=== PATIENT | female | born 1950 | race Caucasian/White ===

== ENCOUNTER → 2021-01-16 10:28 | Outpatient (CLI) | payer MEDICARE, OTHER, SELFPAY ==
--- NOTE | 2021-01-16 | DI.RAD.S_ITS ---
PROCEDURE: FL JOINT INJECTION LARGE RT INDICATIONS: Unilateral primary osteoarthritis, right hip COMPARISON: None. TECHNIQUE: The indications, alternatives, benefits, risks, and complications of the procedure were explained to the patient. Written informed consent was obtained and placed in the chart. The patient was placed in an appropriate position on the fluoroscopy table, and a site was chosen for percutaneous access under fluoroscopic guidance. The site was prepped and draped in a sterile fashion. Local anesthetic was administered using a 1% lidocaine solution. A hypodermic or spinal needle was then used to access the symptomatic joint. Intra-articular location of the needle tip was confirmed by injecting a small amount of contrast, followed by steroid administration. The needle was then withdrawn, and a bandage applied to the puncture site. FINDINGS: Joint injected: Right hip Medications injected: 1 mL of 40 mg/mL Kenalog and 3 cc 0.5% Ropivacaine mixture. Patient's pain before injection: 8-9 out of 10. Patient's pain after injection: 6 out of 10. Complications: None. IMPRESSION: Successful fluoroscopically guided administration of steroid and anaesthetic solution into the right hip joint. Dictated by: Jim Agosto M.D. on 01/17/2021 at 13:50 Approved by: Jim Agosto M.D. on 01/17/2021 at 13:51
== END ==
PROVIDERS: PCP Internal Medicine; Referring Provider Orthopaedic Surgery; Visit Provider Orthopaedic Surgery
DX: M16.11 Unilateral primary osteoarthritis, right hip (principal)
CPT/HCPCS: 20610; 77002

== ENCOUNTER → 2021-02-24 10:59 | Outpatient (CLI) | payer MEDICARE, OTHER, SELFPAY ==
--- NOTE | 2021-02-24 | DI.RAD.S_ITS ---
PROCEDURE: FL JOINT INJECTION LARGE LT INDICATIONS: Unilateral primary osteoarthritis, left hip COMPARISON: [facility], [place], [place] JOINT INJECTION LARGE RT, 01/16/2021, 11:58. TECHNIQUE: The indications, alternatives, benefits, risks, and complications of the procedure were explained to the patient. Written informed consent was obtained and placed in the chart. The patient was placed in an appropriate position on the fluoroscopy table, and a site was chosen for percutaneous access under fluoroscopic guidance. The site was prepped and draped in a sterile fashion. Local anesthetic was administered using a 1% lidocaine solution. A hypodermic or spinal needle was then used to access the symptomatic joint. Intra-articular location of the needle tip was confirmed by injecting a small amount of contrast, followed by steroid administration. The needle was then withdrawn, and a bandage applied to the puncture site. FINDINGS: Joint injected: Left hip Medications injected: 6 mL of 40 mg/mL Kenalog and 0.5% Ropivacaine mixture. Patient's pain before injection: 6 out of 10. Patient's pain after injection: Patient denied giving a number but said it was less than preprocedural pain level. Complications: None. IMPRESSION: Successful fluoroscopically guided administration of steroid and anaesthetic solution into the left hip joint. Dictated by: George Brown M.D. on 02/24/2021 at 12:24 Approved by: George Brown M.D. on 02/24/2021 at 12:26
== END ==
PROVIDERS: PCP Internal Medicine; Referring Provider Orthopaedic Surgery; Visit Provider Orthopaedic Surgery
DX: M16.12 Unilateral primary osteoarthritis, left hip (principal)
CPT/HCPCS: 20610; 77002

== ENCOUNTER 2023-06-25 08:35 | Day surgery (SDC) | payer MEDICARE, OTHER, SELFPAY ==
[2023-06-12 13:38] VITALS: BMI 44.8
[2023-06-25] VITALS (12 sets, daily range): BP systolic 105–148; BP diastolic 40–67; PULSE 74–91; RESP 12–22; TEMP 36–37.6; O2SAT 92–99; BMI 44.8
[2023-06-25] MEDS: LACTATED RINGERS 1,000 ML 42 ML IV ×2 (09:19→13:37)
[2023-06-25] MEDS: ACETAMINOPHEN 325 MG TABLET 975 MG PO (09:19)
[2023-06-25] MEDS: PREGABALIN 75 MG CAPSULE PO (09:23)
[2023-06-25] MEDS: FAMOTIDINE 20 MG/2 ML VIAL IV (09:23)
[2023-06-25] MEDS: VANCOMYCIN 1,000 MG/200 ML PIGGYBACK 200 MG IV (10:08)
[2023-06-25] MEDS: CLINDAMYCIN 900 MG/50 ML PIGGYBACK 50 MG IV ×2 (11:30→20:05)
[2023-06-25] MEDS: TRANEXAMIC ACID 1,000 MG VIAL 1000 MG INJ ×2 (11:59→14:35)
--- NOTE | 2023-06-25 12:00 | DI.RAD.S_ITS ---
PROCEDURE: XR PELVIS 1-2V INDICATIONS: INNER OP TECHNIQUE: Intra-operative view of the pelvis and hip acquired. COMPARISON: [facility], [place], XR PELVIS WITH LATERAL HIP RIGHT, 06/05/2023, 11:48. [facility], [place], XR HIP W PEL IF DONE RT 2V, 06/25/2023, 15:26. FINDINGS: Bones: Intraoperative devices prior to placement of arthroplasty prostheses are in expected positions. No fractures or suspicious bony lesions. Spine hardware. Soft tissues: Overlying surgical retractors are present, along with other intraoperative changes. IMPRESSION: Right hip arthroplasty projects in the expected location. Dictated by: Rogerio Harvey M.D. on 06/25/2023 at 18:03 Approved by: Rogerio Harvey M.D. on 06/25/2023 at 18:21
--- NOTE | 2023-06-25 12:14 | SUR.OPER ---
Lateral on padded OR bed. Gel axillary roll. Arms secured on padded armboard with pillow supporting top arm. Padded hip positioner braces x4 - anterior and posterior chest and pelvis. Additional gel pad used anterior pelvis. Gel pad under bottom leg from knee to foot and secured with tape over sheet.
[2023-06-25] MEDS: BUPIVACAINE 0.25% (PF) 60 ML, EPINEPHrine 0.3 MG INJ (12:22)
[2023-06-25] MEDS: BUPIVACAINE LIPOSOME 266 MG/20 ML VIAL INJ (12:23)
--- NOTE | 2023-06-25 15:00 | DI.RAD.S_ITS ---
PROCEDURE: XR HIP W PEL IF DONE RT 2V INDICATIONS: POST OP RIGHT HIP TECHNIQUE: AP pelvis and lateral view of the hip acquired. COMPARISON: None. FINDINGS: Bones: Patient is status post right hip arthroplasty, with hardware components in expected positions. The hip joint appears congruent. The visualized bony structures appear intact. Soft tissues: Overlying postoperative changes are noted. No suspicious soft tissue densities. IMPRESSION: Expected post-operative appearance of a hip arthroplasty. Dictated by: Betsy Warner MD, PhD on 06/25/2023 at 15:49 Approved by: Betsy Warner MD, PhD on 06/25/2023 at 15:49
--- NOTE | 2023-06-25 15:35 | SUR.PHASEI ---
[facility]G 188 Spoke with Shamar ELLIOTT. No new orders at this time. Notified Dr Carrion. Pt to restart Ozempic and diabetic diet. No new orders at this time.
--- NOTE | 2023-06-25 15:39 | P.OP_ITS ---
Operative Date/Time/Diagnoses Date of procedure: 06/25/23 Time of procedure: 11:00 Pre-op diagnosis: Severe right hip OA Post-op diagnosis: same Procedure & Clinicians Procedure: Right total hip arthroplasty posterior approach Same procedure as scheduled: Yes Indications: The patient has had progressively worsening right hip pain with radiographic changes consistent with arthritis. Non-operative management has failed and the patient has requested total hip replacement. The risks, benefits and alternatives to surgery were discussed with the patient prior to proceeding. Risks discussed included, but were not limited to, failure to relieve pain, leg length discrepancy, dislocation, stiffness, infection, nerve damage, deep venous thrombosis, pulmonary embolism, stroke, coma, heart attack, permanent paralysis and , as well as the potential need for eventual revision of the prosthetic. Surgeon: Gricel Carrion Grounds Restoration Specialist: Rodriguez Harmon Anesthesia Type: General and Spinal Operative Notes Findings: Extremely tight hip, severe right hip osteoarthritis, adequate bone, adequate stability, Closure Type: primary Specimen(s): none sent Prosthetic devices, grafts, tissues, transplants, or devices: [employer] Synergy size 12, size 50 R3 cup, 36 x 50 20 degree acetabular liner optimize liner, 36 x -3 femoral head, one 6.5 mm screw Estimated Blood Loss (mL): 350 Blood products transfused: none Procedure in detail: The patient was seen in the pre-operative area, where the patient identified the right hip as the operative site and this was marked with my initials. The patient received pre-operative antibiotics and was taken to the operating room and placed on the operative table in the left lateral decubitus position after satisfactory anesthesia. A part time receptionist out was performed. The right leg was prepared from the ankle to the iliac crest with ChloroPrep in the usual fashion and draped through sterile drapes. PA was used during the procedure was essential for intraoperative retraction and safe implantation of the components. The patient was noted to have morbid obesity which made the procedure more difficult than normal and required extra time and specific extra retraction in order to adequately place the components. The hip was approached through an approximately 24 cm incision centered over the greater trochanter and curving gently posteriorly as it went proximally. This was carried sharply to the fascia suha, which was divided and retracted with a self retaining retractor. The trochanteric bursa was excised with care being taken to avoid the sciatic nerve, which was identified and protected throughout the case. The short external rotators were incised and the capsulomuscular flap was raised and tagged for later repair. The hip was dislocated, and a femoral neck osteotomy performed approximately 15 mm above the lesser trochanter. Retractors were placed around the femur. The canal was opened with a box cutting osteotome, followed by a T handled reamer and a lateralizing reamer. The chili pepper broach was then used, followed by sequential broaching until there was good stability of the broach in the femur. A Synergy was selected based on the patient's bone and anatomy. Retractors were placed to expose the acetabulum. The labrum and central soft tissues were removed. Reaming was performed initially going up in 2 mm increments, then 1 mm increments until good bite was obtained with an odd sized reamer. It was very difficult to mobilize the femur in order to allow safe implantation of the cup and femoral component. The cup 1 mm larger than the last reamer was then inserted using the appropriate anteversion guides. It was further stabilized with 2 screws. A trial neutral liner was placed. The broach was placed in the canal. A trial head and neck were then placed and the hip relocated and checked for leg length and stability. An intraoperative film confirmed the component position and no evidence of fracture. The patient was stable in the position of sleep, of squatting, and could be put through a range of motion with 45 degrees internal rotation without dislocation. At 90 degrees flexion, internal rotation to 70? was possible before dislocation. This was felt to be satisfactory. It was felt that based on her very large size and morbid obesity she was fundamentally at increased risk for instability. I opted to go with a 36 mm optimize liner with a lip placed on the posterior inferior aspect in order to slightly improved stability. It looked like we could probably go up 1-2 sizes on the stem and the stem was prepped for a size 12 stem. The appropriate components were opened, and the trials were removed. The acetabular liner was impacted into position. The final stem was then impacted into the prepared femoral canal. A brief Betadine soak was performed while trialing with head options. The hip was meticulously irrigated with normal saline. Finally the femoral head was impacted onto the stem. The acetabulum was cleared of all material and the hip relocated one final time. The capsulomuscular flap was then repaired to the greater trochanter though an awl hole using the tag sutures. The short external rotators were repaired with a nonabsorbable suture. The fascia suha was closed with Vicryl. The subcutaneous layer was closed with barbed sutures and skin apple. A priscilla Dressing was applied and the patient was taken to recovery having tolerated the procedure well. Complications: none Post-operative Condition: stable Disposition: observation Plan for aftercare: The patient will be maintained on a standard total hip replacement protocol with weight bearing as tolerated and posterior hip precautions. The patient will receive Aspirin and sequential compression devices for DVT prophylaxis. The patient will be discharged home when safe for the home environment.
[2023-06-25] MEDS: KETOROLAC 30 MG/ML VIAL 15 MG IV (15:51)
--- NOTE | 2023-06-25 16:07 | SUR.PHASEI ---
Pt transferred to room 210 by Eloy ARMAS in bed with 1 hospital bag and 2 personal bags.
[2023-06-25] MEDS: LACTATED RINGERS 1,000 ML 100 ML IV (16:34)
[2023-06-25] MEDS: HYDROCODONE/ACET 5/325 TABLET 2 TAB PO (17:01)
[2023-06-25] MEDS: ASPIRIN EC 81 MG TABLET PO (20:12)
[2023-06-25] MEDS: DULOXETINE 30 MG CAPSULE 60 MG PO (20:12)
[2023-06-25] MEDS: PREGABALIN 75 MG CAPSULE 150 MG PO (20:12)
[2023-06-25] MEDS: DOCUSATE 100 MG CAPSULE PO (20:12)
[2023-06-25] MEDS: ACETAMINOPHEN 325 MG TABLET 650 MG PO (22:05)
[2023-06-25] MEDS: VANCOMYCIN 1,500 MG/300 ML PIGGYBACK 200 MG IV (22:06)
--- NOTE | 2023-06-25 23:50 | PC.NURSE ---
Patient is alert and oriented. Breath sounds CTA with RA sat of 93%. HRR w/soft BP of 105/64 but is asymptomatic. Denied nausea. BT hypoactive and has not passed flatus since surgery. Had not voided since prior to surgery either, so gotten [place] [facility] [place] 2 assist + walker and was able to urinated 450cc; denied any dysuria and now has external catheter back on per her request. Is able to move herself in bed. MEREDITH dressing to right hip is intact and without drainage; functioning. Noted to have bruising on medial and anterior aspect of right thigh. Chronic neuropathy in bilateral feet otherwise CMS is intact and is able to lift right leg off bed. Wearing bilateral calf SCD's. Stated pain has not gotten worse than 4/10 and has been tolerated with use of scheduled pain meds. Fall risk score is moderate but bed alarm is activated.
[2023-06-26 00:36] VITALS: BP 103/47; PULSE 93; RESP 16; TEMP 36.1; O2SAT 92
[2023-06-26] MEDS: CLINDAMYCIN 900 MG/50 ML PIGGYBACK 50 MG IV (04:00)
[2023-06-26] MEDS: ACETAMINOPHEN 325 MG TABLET 650 MG PO ×2 (04:01→10:42)
[2023-06-26 04:53] LABS: Hematocrit 27.8 % (36-46); Hemoglobin 9.1 g/dL (12.0-16.0)
[2023-06-26 04:54] VITALS: BP 102/55; PULSE 88; RESP 19; TEMP 36.2; O2SAT 94
[2023-06-26 08:12] VITALS: BP 110/62; PULSE 86; O2SAT 97
--- NOTE | 2023-06-26 08:40 | PT.IIE ---
Current Diagnoses Bilateral primary osteoarthritis of hip (06/25/23) Surgery Performed Operation Date: 06/25/23 10:45 Actual Procedures p Total Hip Arthroplasty(Right) - Gricel Carrion MD Surgical History (Last Updated 06/12/23 @ 14:33 by Rosemarie Marcus RN) H/O right wrist surgery History of carpal tunnel surgery of left wrist History of carpal tunnel surgery of right wrist History of hysterectomy History of lumbar spinal fusion (~2009) History of surgery History of total left knee replacement Hx of abdominal surgery (~2020) Hx of appendectomy (~1965) Hx of bilateral cataract extraction Hx of cholecystectomy Hx of gastric bypass (~1974) Hx of tonsillectomy S/P Botox injection (~02/2023) Medical History (Last Updated 06/12/23 @ 14:45 by Rosemarie Marcus RN) Dry eyes Fibromyalgia History of COVID-19 (~2022) HTN (hypertension) Neuropathy Pre-diabetes UTI (urinary tract infection) (~06/06/23) Physical Therapy Inpatient Evaluation/Re-Eval M1 PT/OT-IP Prior Functional Status Start: 06/26/23 12:37 Freq: NEEDED Status: Active Protocol: Document 06/26/23 08:40 AB (Rec: 06/26/23 12:52 AB [id number]) Medical Review Prior Functional Status Medical History Reviewed Yes Communication able to make needs known Mobility and Gait pt stated that she was modified independent with all mobilities and ambulation without AD indoors with occasional use of SPC depending on hip pain but uses SPC for outdoor mobility Activities of Daily Living and IADL's Pt states had pain during all ADL and IADL needs. Social History Household Members spouse Living Arrangements Mobile home Number of Floors (Floors) One Floor Number of Stairs To Enter/Railing? 4 steps with bilateral rails. Home Environment Standard Height Toilet,Walk in Shower Home Equipment Front Wheel Walker,Straight Cane,Hand Held Shower,Evaluation Specialist Additional Social History Comment pt has a R bed rail pt sleeps on a reclinver M2 PT-IP Current Condition Start: 06/26/23 12:37 Freq: NEEDED Status: Active Protocol: Document 06/26/23 08:40 AB (Rec: 06/26/23 12:52 AB [id number]) Physical Therapy Current Condition Current Condition Evaluation Date 06/26/23 Treatment Diagnosis s/p R KEV posterior; difficulty in walking Onset Date 06/25/23 M3 PT-IP Subjective Start: 06/26/23 12:37 Freq: NEEDED Status: Active Protocol: Document 06/26/23 08:40 AB (Rec: 06/26/23 12:52 AB [id number]) Subjective Physical Therapy Visit Type Type Initial Evaluation Visit Start Time 08:40 Visit Stop Time 10:00 Number of DIRECTOR OF OPERATIONS HOME HEALTH Visits 0 Physical Therapy Visit Comments Patient Comments agreeable to do PT Therapy Pain Assessment Pain When Pain Assessed At Rest Pain Present Pain Present Pain Reported Location Right Hip Intensity 2 M4 PT-IP Mobility and Gait Start: 06/26/23 12:37 Freq: NEEDED Status: Active Protocol: Document 06/26/23 08:40 AB (Rec: 06/26/23 12:52 AB [id number]) PT-Bed Mobility Assessment Supine to Sit Supine to Sit Minimal Assistance PT-Transfer Assessment Sit to and From Stand Sit to and from Stand Contact Guard Assistance,1 Person Assistance,Use of Upper Extremities Equipment Transfer Assistive Device Gait Belt,Front Wheeled Walker Orthotic/Prosthetic Devices or Brace: No Transfers Transfer Destination Chair Transfer Technique ambulated Transfer Ability Level of Assist Contact Guard Assistance, Minimal Assistance,1 Person Assistance,Use of Upper Extremities Comments Mobility Comments pt supine in bed and agreeable to do PT. obtained PLOF and home set up. provided pt with post-op folder and reviewed contents. educated on posterior hip precautions. pt unable to recall her precautions. pt with confusion and unable to understand precautions despite repetitions and education. pt completed supine to sit min A and max cues. pt able to sit on EOB SBA. completed sit to stand min A and cues for precautions. pt with unsteady initial standing requiring min A for steadiness. instructed to sit back down. educated on sit<>stand techniques with emphasis on LE position for precautions. pt completed sit to stand from EOB CGA and cues. pt ambulated in room using FWW ~ 20 ft CGA . pt sat on EOB. positioned on the chair. asked pt regarding hip precautions again and pt unable to recall. reviewed with pt again. caregiver training set up and spouse will come at 130 pm today for training. call light and table placed within reach. Gait Assessment Gait Gait Assistance Required: Contact Guard Assist Distance (Feet) 20 Able to Maintain Weight Bearing Status Yes During Gait Assistive Devices Assistive Device Gait Belt,Front Wheeled Walker Orthotic/Prosthetic Devices or Brace: No Gait Deviations General Gait Pattern Antalgic,Decreased Stride Length,Decreased Feet Clearance Factors Limiting Gait Function Factors Limiting Gait Function Decreased Activity Tolerance, Decreased Strength,Difficulty Following Directions,Limited Range of Motion,Pain,Poor Balance,Poor Safety Awareness PT-Balance Assessment Sitting Balance and Reactions Static Sitting Balance Ability Good Dynamic Sitting Balance Ability Good Standing Balance and Reactions Static Standing Balance Ability Fair Dynamic Standing Balance Ability Fair Device Used FWW M5 PT-IP Objective Assessments Start: 06/26/23 12:37 Freq: NEEDED Status: Active Protocol: Document 06/26/23 08:40 AB (Rec: 06/26/23 12:52 AB [id number]) Orientation Orientation/Cognition Level of Alertness Confusional State Orientation Name,Situation Language Function Ability No Deficits Noted Safety Awareness Decreased Safety Awareness Memory Description Short Term Impaired Gross Range of Motion Lower Extremity ROM Assessment Within Functional Limits Strength Lower Extremity Strength Assessment Right Impaired Hip 3-/5 Knee 4-/5 Coordination Assessment Gross Coordination Gross Coordination WNL Sensation Assessment Sensation Sensation Description Numbness,Tingling Comments Sensation Comments chronic neuropathy B lower legs Muscle Tone Muscle Tone WNL Yes M6 PT-IP Treatment Start: 06/26/23 12:37 Freq: NEEDED Status: Active Protocol: Document 06/26/23 08:40 AB (Rec: 06/26/23 12:52 AB [id number]) Physical Therapy Treatment Education Education Provided Precautions,Weight Bearing Status,Post-Op Packet,Safety M7 PT-IP Assessment and Plan Start: 06/26/23 12:37 Freq: NEEDED Status: Active Protocol: Document 06/26/23 08:40 AB (Rec: 06/26/23 12:52 AB [id number]) PT Summary Assessment and Plan Potential Rehabilitation Potential Fair Status of Condition at Evaluation Evolving Summary Impairments Pain,ROM,Strength,Balance, Coordination,Sensation,Tone, Cognition,Bed Mobility, Transfers,Gait,Activity Tolerance Assessment Summary pt is a 73 y/o F s/p R KEV posterior POD 1. pt has R hip posterior precautions and is WBAT. pt requiring CGA to min A with mobility but with max cues with all tasks. pt unable to recall her hip precautions needing cues with LE placement for safety. caregiver training set up at 1pm this afternoon. will continue to assess. Goals Bed Mobility Goal Independent Transfer Goal Independent,Front Wheeled Walker Gait Goal Independent,Front Wheel Walker Gait Distance 150 Other Goals up/down 4 steps B rails SBA Days to Meet Goals 5 Frequency of Treatment Frequency Of Treatment Twice a Day Treatment Plan Physical Therapy Treatment Plan Bed Mobility Training,Transfer Training,Gait Training, Therapeutic Exercise,Balance Retraining,Post Op Education, Discharge Planning,Hot or Cold Pack,Neuromuscular Re-ed, Coordination Retraining,Manual Therapy Precautions Posterior Hip Precautions No Hip Flexion > 90 degrees,No Hip Internal Rotation,No Hip Adduction Weight Bearing Status Weight Bearing Status Weight Bear as Tolerated Allowed Weight Bearing Amount (enter % RLE WBAT or #) (%) Recommendations To Nursing Amount of Assist Needed 1 Person Assist Discharge Recommendations PT Discharge Recommendations Home with 26/11 Assist Available,Outpatient PT Transportation Needs at Discharge Private Vehicle
--- NOTE | 2023-06-26 08:42 | PM.PNPO.1 ---
Subjective Subjective Date Patient Seen: 06/26/23 Time Patient Seen: 08:42 Interval history: Patient's pain has been [id number]. Denies fever or chills. No nausea or vomiting. Exam Vital Signs (past 8 hours): - 06/26/23 04:54 06/26/23 08:12 Temperature 97.1 F L Pulse Rate 88 86 Respiratory Rate 19 Blood Pressure 102/55 L 110/62 Pulse Oximetry 94 97 Oxygen Flow Rate 0 0 Oxygen Delivery Method Room Air Oxygen Flow Rate 0 Narrative Exam Narrative: 73-year-old female resting comfortably in bed in no apparent distress. BMI 44.8. Dressing is clean, dry and intact. Motor functions intact bilateral lower extremities. Sensation grossly intact to light touch bilateral lower extremities. Const General: cooperative and comfortable Nutritional Appearance: obese (BMI 44.8) Orientation: alert Resp Effort & Inspection: normal respiratory effort and able to speak in complete sentences Objective Labs 06/26/23 04:27 Labs: Laboratory Results - last 24 hr 06/26/23 04:27 Hgb 9.1 L Hct 27.8 L PFSH Medical History (Updated 06/12/23 @ 14:45 by Rosemarie Marcus RN) History of COVID-19 (~2022) UTI (urinary tract infection) (~06/06/23) Pre-diabetes HTN (hypertension) Dry eyes Neuropathy Fibromyalgia Surgical History (Updated 06/12/23 @ 14:33 by Rosemarie Marcus RN) History of total left knee replacement History of surgery History of carpal tunnel surgery of left wrist History of carpal tunnel surgery of right wrist H/O right wrist surgery History of lumbar spinal fusion (~2009) S/P Botox injection (~02/2023) Hx of tonsillectomy History of hysterectomy Hx of abdominal surgery (~2020) Hx of cholecystectomy Hx of appendectomy (~1965) Hx of gastric bypass (~1974) Hx of bilateral cataract extraction Social History household members: spouse Smoking Status: Former smoker alcohol intake: current Assessment & Plan Post-op Postoperative Procedures: Procedures Operation Date: 06/25/23 10:45 Actual Procedure Side Surgeon p Total Hip Arthroplasty Right Gricel Carrion MD Postoperative day: 1 Postoperative status: doing well Postoperative status narrative: Status post right total hip arthroplasty, posterior approach Postoperative plan: routine post-op care Postoperative plan narrative: Mobilize with physical therapy Standard total hip replacement protocol with weight-bearing as tolerated and posterior hip precautions Multimodal pain management Aspirin for DVT prophylaxis Discharge possibly later today after physical therapy if safe for home environment Quality VTE Deep Vein Thrombosis/Pulmonary Embolism Present on Admission: No
[2023-06-26] MEDS: DULOXETINE 30 MG CAPSULE PO (10:15)
[2023-06-26] MEDS: hydroCHLOROthiazide 25 MG TABLET PO (10:16)
[2023-06-26] MEDS: IBUPROFEN 600 MG TABLET PO (10:16)
[2023-06-26] MEDS: MAGNESIUM OXIDE 400 MG TABLET PO (10:16)
[2023-06-26 10:17] VITALS: BP 113/47; PULSE 80
[2023-06-26] MEDS: ASPIRIN EC 81 MG TABLET PO (10:17)
[2023-06-26] MEDS: LOSARTAN 50 MG TABLET PO (10:17)
[2023-06-26] MEDS: LORATADINE 10 MG TABLET PO (10:17)
[2023-06-26] MEDS: PREGABALIN 75 MG CAPSULE 150 MG PO ×2 (10:17→16:08)
[2023-06-26] MEDS: [UNRECOGNIZED DRUG - OTHER] 1 EACH EYE-BOTH (10:18)
[2023-06-26] MEDS: DOCUSATE 100 MG CAPSULE PO (10:18)
--- NOTE | 2023-06-26 10:44 | CM.DANOTE ---
Initial DCP Assessment Visit Note Reviewed EMR and team rounds for pt's medical status and anticipated d/c needs. Met with pt at bedside to introduce self and role, pt found to be alert/oriented/sitting upright in the recliner, able to discuss her home d/c needs/preferences with this MATERIAL FLOW ENGINEER. Plan is for d/c today following working with therapies, spouse will provide immediate post-op care/assistance, and will transport pt home once medically cleared for d/c. Payor: Medicare Attending: Dr. Carrion Pt is a 73 year-old F post-op day 1 from her total R-hip arthroplasty surgery. Pt has a hx of worsening R-hip pain that has had no lasting benefit from relief of pain w/conservative measures. She mobilizes with a walker and a cane at baseline, has already scheduled her OP PT f/u after hospital d/c. Spouse is planning to assist with her care needs during immediate post-op recovery period. Pt denies any in-home resource or support needs at this time. No further DCP needs. DCP will continue to follow for any further evolving needs prior to d/c. Discharge Planning/Care Management CM Discharge Assessment Start: 06/26/23 10:41 Freq: Status: Active Protocol: Document 06/26/23 10:41 DPL (Rec: 06/26/23 10:44 DPL [id number]) Discharge Planning Assessment Assigned Boom Tender VLADISLAV Dunn Advance Directives? No History Provided By Patient,Medical Record Has Patient been admitted in last 30 No days? Prior Living Arrangements Mobile home Household Members spouse Type of transporation used prior to Drives own vehicle admit Independent with ADL's Yes Is patient alert and oriented? Yes Caregiver for Another No DME Already Rented / Owned FWW / Walker,Cane Comment No identified home d/c needs identified at this time. Barriers to Discharge No Discharge Plan Home Community Services Physical Therapy Referrals Initiated None needed Whiteboard Updated in Patient Room with Yes name and ext. # of Boom Tender Review Status In Process Please Provide Date Initial DC 06/26/23 Assessment Was Performed Pre-Anesthesia Assessment Start: 06/12/23 13:38 Freq: Status: Complete Protocol: Document 06/12/23 13:38 CAB (Rec: 06/12/23 14:49 CAB [id number]) Pre-Anesthesia Assessment PAC Comment Pt advised to hold Ozempic 7 days prior to surgery Preferred Name Queenie Patient Information Reviewed Via Phone Assessment Assessment Completed With Patient Diagnostic Results BMP/CMP,CBC,EKG Primary Care Provider Katherine Nichols Seen Specialist in Last 12 Months Yes Specialist Seen Orthopedist,Urologist Primary Language Palestinian Block Making Machine Operator Required No Height 157.48 cm Weight 111.13 kg Body Mass Index (BMI) 44.8 Hearing Ability Normal Visual Impairment No Limitations Visual Assist None Dentition Type Teeth, Natural Present,Teeth, Missing Barriers to Learning None Comment Pt denies any difficulties Hx Anesthesia Reactions No Hx Family Anesthesia Reaction No Hx Malignant Hyperthermia No Hx Blood Transfusions No Anesthesia Review Requested No Children'S Literature Professor No alcohol intake current alcohol intake frequency holidays/special occasions only Smoking Status Former smoker how long ago did patient quit smoking Quit 35 years ago Substance Use Type does not use Pain Present Pain Reported Musculoskeletal Symptoms Abnormal Gait,Arthralgias, Difficulty Walking,Joint Pain, Myalgias History of Falling (Recent or History of Yes ) Patient is completely paralyzed or No completely immobile Prosthesis or Orthotic Device Cane Is patient on oxygen? No Does patient have OLIVA/SOB No Hx Sleep Apnea No Currently Taking a Beta Prudencio No Can You Climb a Flight of Stairs Without Yes SOB Hx Chest Pain No Hx SOB No Hx Syncope or Dizziness No Anti-Coagulant Therapy No Has a E M Assembler No Cardiac Testing No Hx Pacemaker/ICD No Pacemaker Rep Required? No Cardiac Clearance Received Not Applicable Diet Type At Home Other Dysphagia WW Gastrointestinal Symptoms Constipation Bladder Pattern Incontinent Urinary Catheter Present No Hx Urinary Self Catheterization No Diabetes No: Pre-diabetes HgbA1C 6.2 Date 06/05/23 Patient No Lactating No Presence of External or Internal Medical Yes: Lumbar fusion, kaiden eye Devices IOLs, left knee Received a COVID vaccine? Yes Received all doses? Yes Marital Status Lives With spouse Current Living Arrangements Mobile home Number of Floors (Floors) One Floor Number of Stairs To Enter/Railing? 4-5 stairs Support System Spouse Does the Patient Have Assistance After Yes Surgery Patient Discharge Plan Description Return Home Comment Pt advised overnight length of stay per surgeon Feels Safe in Current Environment Yes Been Physically Hurt or Threatened By a No Person in Current Environment Do you have thoughts of harming yourself None or others? Are you currently considering suicide? No Do you have a plan to hurt yourself or No Plan others? Do You Have Any Spiritual Beliefs That No May Affect Your HC Choices? Do You Have Any Cultural Practices That No May Affect Your HC Choices? Comment Buddhism Who Can We Speak to About Patient's Care Family, friends Identifying Code for Release of Patient Declines to issue Information Health Care Proxy/Next of Kin Darwin () Health Care Proxy Emergency Contact Name Romulo (son) Emergency Contact Advance Directives? No Power of Screedman/Laborer No PAC Instructions Do not shave/clip surgical site,Durable medical equipment ,Medications to take/avoid, Nasal antibiotic,No ETOH/ petroleum product on skin DOS, NPO,Post-op transportation,Pre -surgical wash,Sensory aids, Sturdy shoes/comfortable clothes,Do not bring valuables and remove jewelry
--- NOTE | 2023-06-26 11:43 | OT.IP.EVAL ---
Current Diagnoses Bilateral primary osteoarthritis of hip (06/25/23) Surgery Performed Operation Date: 06/25/23 10:45 Actual Procedures p Total Hip Arthroplasty(Right) - Gricel Carrion MD Past Medical History (Last Updated 06/12/23 @ 14:45 by Rosemarie Marcus, RN) Dry eyes Fibromyalgia History of COVID-19 (~2022) HTN (hypertension) Neuropathy Pre-diabetes UTI (urinary tract infection) (~06/06/23) Surgical History (Last Updated 06/12/23 @ 14:33 by Rosemarie Marcus RN) H/O right wrist surgery History of carpal tunnel surgery of left wrist History of carpal tunnel surgery of right wrist History of hysterectomy History of lumbar spinal fusion (~2009) History of surgery History of total left knee replacement Hx of abdominal surgery (~2020) Hx of appendectomy (~1965) Hx of bilateral cataract extraction Hx of cholecystectomy Hx of gastric bypass (~1974) Hx of tonsillectomy S/P Botox injection (~02/2023) Occupational Therapy Inpatient Evaluation/Re-Eval M1 PT/OT-IP Prior Functional Status Start: 06/26/23 11:49 Freq: NEEDED Status: Active Protocol: Document 06/26/23 11:49 [facility] (Rec: 06/26/23 12:17 [facility] [id number]) Medical Review Prior Functional Status Communication Independent. Mobility and Gait Pt states if having lots of pain would use her cane to walk with. Activities of Daily Living and IADL's Pt states had pain during all ADL and IADL needs. Social History Household Members spouse Living Arrangements Mobile home Number of Floors (Floors) One Floor Number of Stairs To Enter/Railing? 4 steps with bilateral narrow rails. Home Environment Standard Height Toilet,Tub/ Shower Home Equipment Front Wheel Walker,Straight Cane,Silk Screen Painter Additional Social History Comment Pt states her recliner is broken. Otherwise can sit on the couch, however it is low or use her 's recliner. M2 OT-IP Current Condition Start: 06/26/23 11:49 Freq: Status: Active Protocol: Document 06/26/23 11:49 [facility] (Rec: 06/26/23 12:17 [facility] [id number]) Occupational Therapy Current Condition Current Condition Evaluation Date 06/26/23 Treatment Diagnosis S/P R KEV posterior approach Diagnosis Onset Date 06/25/23 Post Operative Precautions Posterior Hip Precautions No Hip Flexion > 90 degrees,No Hip Internal Rotation,No Hip Adduction M3 OT- IP Subjective and Pain Start: 06/26/23 11:49 Freq: Status: Active Protocol: Document 06/26/23 11:49 [facility] (Rec: 06/26/23 12:17 [facility] [id number]) OT- Subjective Occupational Therapy Visit Type Type Initial Evaluation Visit Start Time 10:45 Visit Stop Time 10:43 Occupational Therapy Visit Comments Patient Comments Pt agreed to work with OT. Patient/Caregiver Goals TO go home. OT Pain Assessment Pain When Pain Assessed During Mobility Pain Present Pain Present Pain Reported Location Right Hip Intensity 7 Scale Used Numeric (0 - 10) M4 OT- IP ADL's Start: 06/26/23 11:49 Freq: Status: Active Protocol: Document 06/26/23 11:49 [facility] (Rec: 06/26/23 12:17 [facility] [id number]) OT [id number] Comments OT Self-Feeding Comments Pt state not hungry. OT ADL-Grooming General Evaluation Grooming Ability Standby Assistance Areas Needing Assistance Retrieving/Set-up of Grooming Items Comments OT Grooming Comments Pt able to stand at the sink with FWW. OT ADL-Oral Care General Eval Oral Care Ability Independent OT ADL-Dressing General Eval Lower Body Dressing Ability Maximum Assistance Comments OT Dressing Comments Educated of LB dressing equipment, to dress the RLE first and take out last. OT ADL-Toileting Comments OT Toileting Comments Pt would benefit from a toilet paper aid /bidet, otherwise her will have to assist. Use of wet-wipes will be beneficial. In addition to have a BSC. OT ADL-Bathing Comments OT Bathing Comments Pt states the shower/tub will not accommodate a shower chair as last time chair broke the shower floor. Therefore pt states will just sponge bath for now. Able to go over care for bandage needs with pt. M5 OT- IP IADL's Start: 06/26/23 11:49 Freq: Status: Active Protocol: Document 06/26/23 11:49 [facility] (Rec: 06/26/23 12:17 [facility] [id number]) OT-Instrumental Activities of Daily Living Deficits IADL Deficits Identified Deficits Home Safety Awareness Awareness of Need for Assistance at Home Good Awareness Ability to Problem Solve Emergency Able to Problem Solve Situations Home Safety Comments Pt is doing better and not so groggy and educated to be mindful or have her assist/supervise for meds/ bills. Meal Preparation Meal Preparation Caregiver Provides Assist Deburrer Strip Deburrer Strip Caregiver Provides Assist M6 OT- IP Functional Cognition Start: 06/26/23 11:49 Freq: Status: Active Protocol: Document 06/26/23 11:49 [facility] (Rec: 06/26/23 12:17 [facility] [id number]) Cognitive Factors Limiting Selfcare Function Cognitive Ability Level of Alertness Alert Patient Orientation Name,Age,Birthday,Month,Date, Year,Day of Week,Place, Situation Attention Span Ability Capable of Focused Attention, Capable of Sustained Attention Ability to Follow Commands Able to Follow One Step Commands Safety Awareness Decreased Ability to Apply Precautions Cognitive Comments Cognitive Assessment Comments Pt still needing cues to incorporate her hip precautions for ADL and mobility needs. OT- Vision and Hearing OT- Hearing Assessment OT- Hearing Assessment WFL OT- Vision Assessment Visual Acuity WFL Visual Attentiveness WFL Occular Pursuits WFL Visual Convergence WFL M7 OT- IP Mobility and Balance Start: 06/26/23 11:49 Freq: Status: Active Protocol: Document 06/26/23 11:49 [facility] (Rec: 06/26/23 12:17 [facility] [id number]) OT- Bed Mobility Assessment Sit to Supine Sit to Supine Assist Minimal Assistance OT-Transfer Assessment Sit to and From Stand Sit to and from Stand Contact Guard Assistance Transfers Transfer Ability Standby Assistance Technique Transfer Destination Bed Transfer Technique Stand Step Pivot Devices Transfer Assistive Devices Gait Belt,Front Wheeled Walker Comments Mobility Comments DELTA to assist with her RLE. Education of of positioning in bed. VC to push up from the bed to stand. Spoke of pt to use her 's recliner as hers is broken. OT- Balance Assessment Sitting Balance and Reactions Static Sitting Balance Ability Good Dynamic Sitting Balance Ability Fair Standing Balance and Reactions Static Standing Balance Ability Good Dynamic Standing Balance Ability Fair M8 OT- IP Objective Assessments Start: 06/26/23 11:49 Freq: Status: Active Protocol: Document 06/26/23 11:49 [facility] (Rec: 06/26/23 12:17 [facility] [id number]) OT Gross Range of Motion Upper Extremity Range of Motion ROM Impairments grossly WFL OT Strength Comments Strength Comments WFL for needs M9 OT- IP Assessment and Plan Start: 06/26/23 11:49 Freq: Status: Active Protocol: Document 06/26/23 11:49 [facility] (Rec: 06/26/23 12:17 [facility] [id number]) OT Summary Assessment and Plan Potential Rehabilitation Potential Excellent Analytic Complexity at Evaluation Low Summary OT Impairments Pain,Strength,Balance, Functional Mobility,Dressing, Toileting,Bathing,Toilet Transfers,Shower Transfers Progress Towards Goals Progressing Toward Goals Assessment Summary Pt low complexity and main barriers are pain, needing assist for toileting and showering needs, vc to incorporate her hip precautions for all ADl and mobility needs including car transfer. Pt will benefit from LB dressing equipment and BSC . Pt to go home with assist and outpt PT. Goals Dressing Goal Independent Toileting Goal Minimal Assistance Bathing Goal Minimal Assistance Toilet Transfer Goal Independent Shower Transfer Goal Standby Assistance Days to Meet Goals 5 Frequency of Treatment Frequency Of Treatment Once a Day Treatment Plan OT Treatment Plan ADL Training,Functional Mobility,Patient/Family Education,Discharge Planning Discharge Recommendations OT Discharge Recommendations Home with Assistance, Outpatient PT Home Equipment Needs BSC, shoe horn Tub bench suggested will not work for her tub/shower at home due to eyad too weak. Pt states last time the shower chair broke the shower eyad. Transportation Needs at Discharge Private Vehicle
[2023-06-26] MEDS: OXYCODONE IR 5 MG TABLET PO ×2 (11:45→16:08)
--- NOTE | 2023-06-26 12:33 | P.DS_ITS ---
History of Present Illness History of Present Illness Date Patient Seen: 06/26/23 Time Patient Seen: 12:34 Chief complaint: Hip pain Narrative: See progress note Discharge Providers Provider Discharge Date: 06/26/23 Primary care physician: Katherine Nichols MD Consults: 06/25/23 08:21 Consult to Anesthesiology Routine Comment: Consulting Provider: Anesthesiologist Reason for consultation: Regional block for post operative pain control 06/25/23 16:08 Consult to Dietitian, Adult Routine Comment: Reason For Exam: morbid obesity Consult to Discharge Planning Routine Comment: Consult to Occupational Therapy Evaluate & Treat Comment: Physician Instructions: Evaluate and treat Consult to Physical Therapy Evaluate & Treat Comment: Physician Instructions: post op KEV protocol Discharge provider: Rito Quiles PA-C Summary Hospital Course Discharge Diagnosis: Severe right hip osteoarthritis Hospital Course: Right total hip arthroplasty posterior approach Same procedure as scheduled: Yes Indications: The patient has had progressively worsening right hip pain with radiographic changes consistent with arthritis. Non-operative management has failed and the patient has requested total hip replacement. The risks, benefits and alternatives to surgery were discussed with the patient prior to proceeding. Risks discussed included, but were not limited to, failure to relieve pain, leg length discrepancy, dislocation, stiffness, infection, nerve damage, deep venous thrombosis, pulmonary embolism, stroke, coma, heart attack, permanent paralysis and , as well as the potential need for eventual revision of the prosthetic. Surgeon: Gricel Carrion Superintendent Generating Plant: Rodriguez Harmon Anesthesia Type: General and Spinal Operative Notes Findings: Extremely tight hip, severe right hip osteoarthritis, adequate bone, adequate stability, Closure Type: primary Specimen(s): none sent Prosthetic devices, grafts, tissues, transplants, or devices: Carrion [employer] Synergy size 12, size 50 R3 cup, 36 x 50 20 degree acetabular liner optimize liner, 36 x -3 femoral head, one 6.5 mm screw Estimated Blood Loss (mL): 350 Blood products transfused: none Patient admitted to the hospital for right total hip arthroplasty, posterior approach. Patient consented to the same. Patient underwent surgery on June 25, 2023. Patient back in her room recovering well as still full condition. Patient has assistance at home. She will be on multiple pain management. Aspirin for DVT prophylaxis. Weightbearing as tolerated with posterior hip precautions. Priscilla dressing instructions were reviewed. Patient will be discharged home today after physical therapy if safe for home environment. Status at Discharge Cognitive/behavioral status at discharge: at baseline, oriented Functional status at discharge: uses cane/walker Overall status at discharge: patient is progressing back to baseline Exam Vital Signs (past 8 hours): - 06/26/23 04:54 06/26/23 08:12 06/26/23 10:17 Temperature 97.1 F L Pulse Rate 88 86 80 Respiratory Rate 19 Blood Pressure 102/55 L 110/62 113/47 L Pulse Oximetry 94 97 Oxygen Flow Rate 0 0 Oxygen Delivery Method Room Air Oxygen Flow Rate 0 Narrative Exam Narrative: See progress note Objective Labs 06/26/23 04:27 Labs: Laboratory Results - last 24 hr 06/26/23 04:27 Hgb 9.1 L Hct 27.8 L PFSH Medical History (Updated 06/12/23 @ 14:45 by Rosemarie Marcus RN) History of COVID-19 (~2022) UTI (urinary tract infection) (~06/06/23) Pre-diabetes HTN (hypertension) Dry eyes Neuropathy Fibromyalgia Surgical History (Updated 06/12/23 @ 14:33 by Rosemarie Marcus RN) History of total left knee replacement History of surgery History of carpal tunnel surgery of left wrist History of carpal tunnel surgery of right wrist H/O right wrist surgery History of lumbar spinal fusion (~2009) S/P Botox injection (~02/2023) Hx of tonsillectomy History of hysterectomy Hx of abdominal surgery (~2020) Hx of cholecystectomy Hx of appendectomy (~1965) Hx of gastric bypass (~1974) Hx of bilateral cataract extraction Social History household members: spouse Smoking Status: Former smoker alcohol intake: current Discharge Assessment & Plan Assessment and Plan Assessment: Patient progressing as expected status post right total hip arthroplasty, posterior approach Plan of Treatment: Weight-bearing as tolerated, posterior hip precautions Multimodal pain management Aspirin 81 mg b.i.d. for DVT prophylaxis Discharge home today after physical therapy if safe for home environment. Discharge Plan Discharge orders & Medications Discharge Orders: Discharge (Order); Ordered 06/26/23 Ordered By: Rito Quiles Prescriptions: New acetaminophen 325 mg Tablet 650 mg PO Q6H Qty: 60 0RF aspirin 81 mg Tablet,Delayed Release (Dr/Ec) 81 mg PO BID Qty: 60 0RF oxycodone 5 mg Tablet 5 mg PO Q3H PRN (Reason: Pain, Moderate (4-6)) Qty: 60 0RF Continued losartan 50 mg Tablet 50 mg PO DAILY cetirizine [Aller-Car] 10 mg Tablet 10 mg PO DAILY ibuprofen 200 mg Tablet 600 mg PO DAILY hydrochlorothiazide 25 mg Tablet 25 mg PO DAILY duloxetine 30 mg Capsule,Delayed Release(Dr/Ec) 30 mg PO QAM duloxetine 60 mg Capsule,Delayed Release(Dr/Ec) 60 mg PO BEDTIME pregabalin 150 mg Capsule 150 mg PO TID magnesium oxide 400 mg magnesium Tablet 400 mg PO BID Klarity (chondroitin) (PF) 0.25 % Drops 1 drp ophthalmic (eye) BID Ozempic 0.25 mg or 0.5 mg (2 mg/3 mL) Pen Injector 0.5 mg SUBCUT QWEEK Patient Comments: Saturday Discontinued hydrocodone-acetaminophen 5-325 mg Tablet 1 - 2 tab PO BID PRN (Reason: Pain) acetaminophen 650 mg Tablet Extended Release 1,300 mg PO BEDTIME Follow up/Referrals: Katherine Nichols MD [Primary Care Provider] - Gricel Carrion MD [Physician] - (2 weeks as scheduled) Diet/Activity/Treatments Diet: Diet as Tolerated Activity: Weight-bearing as tolerated, posterior hip precautions Cold/Heat Therapy: Ice hip as needed Skin/Wound/Dressing Care Report to your healthcare provider any signs of infection, such as:: chills, fever, night sweats, increased pain, unusual drainage and unusual redness Dressing: Keep dressing clean and dry, priscilla monitor we will discontinue functioning after 5-7 days. The tubing from the monitor can be cut at the base near the dressing. The tubing and monitor can be thrown away. The dressing to remain in place until 2 week follow up appointment. Visit Report/Discharge Packet Instructions: DI for Hip Replacement, DI for Prescription Opioid Use Stand Alone Forms: Patient Portal/API, Surgery Discharge Discharge Data Primary Care Provider: Katherine Nichols Attending Provider: Gricel Carrion Quality VTE Deep Vein Thrombosis/Pulmonary Embolism Present on Admission: No
--- NOTE | 2023-06-26 13:30 | PT.IPTN ---
Current Diagnoses Bilateral primary osteoarthritis of hip (06/25/23) Surgery Performed Operation Date: 06/25/23 10:45 Actual Procedures p Total Hip Arthroplasty(Right) - Gricel Carrion MD Physical Therapy Treatment Note M2 PT-IP Current Condition Start: 06/26/23 12:37 Freq: NEEDED Status: Active Protocol: Document 06/26/23 08:40 AB (Rec: 06/26/23 12:52 AB [id number]) Physical Therapy Current Condition Current Condition Evaluation Date 06/26/23 Treatment Diagnosis s/p R KEV posterior; difficulty in walking Onset Date 06/25/23 M3 PT-IP Subjective Start: 06/26/23 12:37 Freq: NEEDED Status: Active Protocol: Document 06/26/23 13:30 AB (Rec: 06/26/23 15:08 AB [id number]) Subjective Physical Therapy Visit Type Type Treatment Note Visit Start Time 13:30 Visit Stop Time 14:40 Number of NYLON MACHINE OPERATOR Visits 70 M4 PT-IP Mobility and Gait Start: 06/26/23 12:37 Freq: NEEDED Status: Active Protocol: Document 06/26/23 13:30 AB (Rec: 06/26/23 15:08 AB [id number]) PT-Bed Mobility Assessment Supine to Sit Supine to Sit Minimal Assistance,1 Person Assistance,Bedrails PT-Transfer Assessment Sit to and From Stand Sit to and from Stand Contact Guard Assistance,1 Person Assistance,Use of Upper Extremities Equipment Transfer Assistive Device Gait Belt,Front Wheeled Walker Orthotic/Prosthetic Devices or Brace: No Transfers Transfer Destination Chair Transfer Technique ambulated Transfer Ability Level of Assist Contact Guard Assistance,1 Person Assistance,Use of Upper Extremities Comments Mobility Comments pt supine in bed and caregiver training conducted. educated pt regarding pt's posterior hip precautions. educated spouse on how to assist pt. pt completed bed mobility supine to sit min A and spouse was able to assist. educated spouse on how to use safety belt and how to assist pt with transfers and ambulation. spouse was able to put safety belt on pt, assisted pt with sit to stand and ambulated pt to the chair using FWW CGA. pt agreed to do stairs. spouse assisted pt with sit to stand but required cues from PT to remind pt of LE position for her precautions. pt sat back on chair. repeated sit<> stand x 3 reps with spouse assisting and providing cues. pt ambulated in the hallway using FWW CGA ~ 100 ft. educated pt on car transfers. pt and spouse understood. assisted pt to the stairs. educated pt and spouse on stair climbing techniques. pt completed up/down stairs using bilateral rails CGA with max cues initially provided by PT. both pt and spouse unable to recall techniques for safety. pt repeated again and spouse was able to assist and cue pt. assisted pt back to her room. ambulated from w/c to chair SBA to CGA using FWW. positioned pt on the chair. call light and table placed within reach. pt and spouse without further concerns. Gait Assessment Gait Gait Assistance Required: Contact Guard Assist Distance (Feet) 100 Able to Maintain Weight Bearing Status Yes During Gait Assistive Devices Assistive Device Gait Belt,Front Wheeled Walker Orthotic/Prosthetic Devices or Brace: No Gait Deviations General Gait Pattern Antalgic,Decreased Stride Length,Decreased Feet Clearance Factors Limiting Gait Function Factors Limiting Gait Function Decreased Activity Tolerance, Decreased Strength,Difficulty Following Directions,Pain,Poor Balance,Poor Safety Awareness Stair Climbing Assessment Evaluation Level of Assist On Stairs Contact Guard Assistance Devices Stair Climbing Assistive Devices Left Railing,Right Railing Technique/Endurance Stair Climbing Direction Ascend and Descend Stair Climbing Technique Step to Step Number of Steps Climbed 3 Stair Climbing Set # Repetitions (reps) 2 M5 PT-IP Objective Assessments Start: 06/26/23 12:37 Freq: NEEDED Status: Active Protocol: Document 06/26/23 08:40 AB (Rec: 06/26/23 12:52 AB [id number]) Orientation Orientation/Cognition Level of Alertness Confusional State Orientation Name,Situation Language Function Ability No Deficits Noted Safety Awareness Decreased Safety Awareness Memory Description Short Term Impaired Gross Range of Motion Lower Extremity ROM Assessment Within Functional Limits Strength Lower Extremity Strength Assessment Right Impaired Hip 3-/5 Knee 4-/5 Coordination Assessment Gross Coordination Gross Coordination WNL Sensation Assessment Sensation Sensation Description Numbness,Tingling Comments Sensation Comments chronic neuropathy B lower legs Muscle Tone Muscle Tone WNL Yes M6 PT-IP Treatment Start: 06/26/23 12:37 Freq: NEEDED Status: Active Protocol: Document 06/26/23 13:30 AB (Rec: 06/26/23 15:08 AB [id number]) Physical Therapy Treatment Education Education Provided Precautions,Safety M7 PT-IP Assessment and Plan Start: 06/26/23 12:37 Freq: NEEDED Status: Active Protocol: Document 06/26/23 13:30 AB (Rec: 06/26/23 15:08 AB [id number]) PT Summary Assessment and Plan Potential Rehabilitation Potential Fair Summary Impairments Pain,ROM,Strength,Balance, Coordination,Sensation,Tone, Cognition,Bed Mobility, Transfers,Gait,Activity Tolerance Progress Towards Goals Progressing Toward Goals Assessment Summary pt continues to require cues for hip precautions. caregiver training conducted and spouse was able to assist and cue pt. pt plans to go home and has outpt PT set up. Goals Bed Mobility Goal Independent Transfer Goal Independent,Front Wheeled Walker Gait Goal Independent,Front Wheel Walker Gait Distance 150 Other Goals up/down 4 steps B rails SBA Days to Meet Goals 5 Frequency of Treatment Frequency Of Treatment Twice a Day Treatment Plan Physical Therapy Treatment Plan Bed Mobility Training,Transfer Training,Gait Training, Therapeutic Exercise,Balance Retraining,Post Op Education, Discharge Planning,Hot or Cold Pack,Neuromuscular Re-ed, Coordination Retraining,Manual Therapy Precautions Posterior Hip Precautions No Hip Flexion > 90 degrees,No Hip Internal Rotation,No Hip Adduction Weight Bearing Status Weight Bearing Status Weight Bear as Tolerated Allowed Weight Bearing Amount (enter % RLE WBAT or #) (%) Recommendations To Nursing Amount of Assist Needed 1 Person Assist Discharge Recommendations PT Discharge Recommendations Home with 26/11 Assist Available,Outpatient PT Transportation Needs at Discharge Private Vehicle
== END 2023-06-26 16:25 | disposition home or self-care (01) ==
LOC: OR 08:39 → AC 08:39
PROVIDERS: PCP Internal Medicine; Referring Provider Orthopaedic Surgery; Visit Provider Orthopaedic Surgery
PROC: 0SR90JZ Replacement of Right Hip Joint with Synthetic Substitute, Open Approach (ICD-10-PCS; CPT 27130; principal; 2023-06-25 10:45)
DX: M16.11 Unilateral primary osteoarthritis, right hip (principal)
CPT/HCPCS: 27130; 36415; 72170; 73502; 82962; 85014; 85018; 97162; 97165; 97530; 97535; C1776; C9290; J0171; J1885; J2250; J2704; J3010